=== PATIENT | female | born 1970 ===

== ENCOUNTER 2023-01-09 05:55 | Day surgery (SDC) | payer BC, OTHER ==
[2023-01-09] MEDS ORDERED: Midazolam 1 MG/ML 2 ML SDV IV ONE ×7 (05:56→07:21)
[2023-01-09] MEDS ORDERED: fentaNYL 100 MCG/2 ML SDV IV ONE ×4 (05:56→07:22)
[2023-01-09] MEDS ORDERED: Dextrose 5%-0.45% NaCl 1,000 ML IV SCH (06:00)
[2023-01-09] MEDS ORDERED: Midazolam 1 MG/ML 2 ML SDV ONE (06:11)
[2023-01-09] MEDS ORDERED: fentaNYL 100 MCG/2 ML SDV ONE (06:11)
== END 2023-01-09 09:10 | disposition home or self-care (01) ==
LOC: DL.ENDO 05:55
PROVIDERS: ATTEND Internal Medicine Gastroenterology
DX: K59.09 Other constipation (principal); E66.9 Obesity, unspecified; Z68.28 Body mass index [BMI] 28.0-28.9, adult
CPT/HCPCS: 45378; J2250; J3010; J7042